=== PATIENT | female | born 1985 | race American Indian/Alaskan Native ===

== ENCOUNTER 2017-02-28 23:54 | Emergency (ER) | payer SELFPAY ==
[2017-03-01 00:10] VITALS: RESP 18; TEMP 98.3
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
[2017-03-01] MEDS ORDERED: Amoxicillin-Clav 875-125 mg Tab PO STA (01:32)
[2017-03-01 02:55] VITALS: BP 122/64; PULSE 88; O2SAT 100
== END 2017-03-01 02:54 | disposition home or self-care (01) ==
LOC: ED 23:54
DX: H11.31 Conjunctival hemorrhage, right eye (principal); S00.83XA Contusion of other part of head, initial encounter; S00.81XA Abrasion of other part of head, initial encounter; Y04.0XXA Assault by unarmed brawl or fight, initial encounter; R94.8 Abnormal results of function studies of other organs and systems; J32.9 Chronic sinusitis, unspecified